=== PATIENT | female | born 1950 | race Caucasian/White ===

== ENCOUNTER 2017-05-03 17:54 | Inpatient (IN) | payer OTHER ==
[~2017-05-03] VITALS: Ht 152.4 cm; Wt 74.8 kg
--- NOTE | 2017-05-03 18:20 | NUR ---
Dr Landeros medically cleared pt.
--- NOTE | 2017-05-03 18:25 | NUR ---
Akira Cottrell notified.
[2017-05-03] MEDS ORDERED: OLAN10TA3 PO (18:39)
[2017-05-03] MEDS ORDERED: CLON0.5T4 PO (18:39)
[2017-05-03] MEDS ORDERED: RISP1TAB7 PO (18:39)
[2017-05-03] MEDS ORDERED: OXCA300T PO (18:39)
[2017-05-03] MEDS ORDERED: DIVA250T4 PO (18:39)
[2017-05-03] MEDS ORDERED: OLAN5TAB3 PO (18:39)
--- NOTE | 2017-05-03 21:38 | NUR ---
Pt. admitted to GPS, under care of Dr. Carlin Belongs List completed
[2017-05-03] MEDS ORDERED: MAG HYDROX/AL HYDROX/SIMETH 30 ML LIQUID UDC PO PRN (21:45)
[2017-05-03] MEDS ORDERED: MAGNESIUM HYDROXIDE 30 ML LIQUID UDC PO PRN (21:45)
[2017-05-03] MEDS: TEMAZEPAM 7.5 MG CAPSULE PO PRN (22:24)
[2017-05-03] MEDS ORDERED: TEMAZEPAM 7.5 MG CAPSULE ONE (22:34)
[2017-05-03 23:29] VITALS: BP 145/97
--- NOTE | 2017-05-04 00:05 | NUR ---
GPS: Admitted to unit earlier a 67 yr.old female under the care of / in stable condition. Pt.is on a 72 hour hold for GD. Pt. has had paranoid delusions of people robbing her home and called police dept. to report but no such evidenced found by P.D. Pt. has long hx of bipolar disorder and unknown if pt.is compliant with her meds. Body check/personal belongings completed. Safety emphasized. No increased agitation noted. Bed alarm on for safety. Pt.alert to self only. Poor insight to present situation. Will continue to monitor.
[2017-05-04 07:30] VITALS: BP 146/109
[2017-05-04] MEDS ORDERED: DIVALPROEX 250 MG TABLET.DR PO SCH (09:00)
[2017-05-04 15:00] VITALS: BP 137/64
--- NOTE | 2017-05-04 15:31 | NUR ---
Initial DC Plan: Patient currently resides home alone [[address] [place] [address]; [phone]] and has an [facility] caregiver. SW will follow up with MD, patient, and patient's friend Mike Chapin [[phone]] to discuss most appropriate discharge plans. SW will form a safe and proper discharge.
[2017-05-04 20:11] VITALS: BP 146/80
[2017-05-04] MEDS: risperiDONE 1 MG TABLET PO SCH (22:41)
[2017-05-04] MEDS: TRAZODONE 50 MG TABLET PO SCH (22:41)
[2017-05-04] MEDS ORDERED: TRAZODONE 50 MG TABLET ONE (22:52)
[2017-05-04] MEDS ORDERED: risperiDONE 1 MG TABLET ONE (22:52)
[2017-05-05] MEDS: TEMAZEPAM 7.5 MG CAPSULE PO PRN (01:29)
[2017-05-05] MEDS: DIVALPROEX 250 MG TABLET.DR PO SCH ×3 (08:43→16:43)
[2017-05-05] MEDS: risperiDONE 1 MG TABLET PO SCH ×2 (08:43→20:10)
[2017-05-05] MEDS: AMLODIPINE 5 MG TABLET PO SCH (11:48)
[2017-05-05] MEDS: LORAZEPAM 1 MG TABLET PO PRN (14:33)
[2017-05-05 15:12] VITALS: BP 151/83
[2017-05-05] MEDS: TRAZODONE 50 MG TABLET PO SCH (20:10)
[2017-05-06] MEDS: TEMAZEPAM 7.5 MG CAPSULE PO PRN (00:48)
[2017-05-06] MEDS: LORAZEPAM 1 MG TABLET PO PRN (03:12)
[2017-05-06 07:30] VITALS: BP 146/74
[2017-05-06 07:47] LABS: BASOPHILS % (AUTO) 0.3 % (0.0-2.0); EOSINOPHILS % (AUTO) 0.2 % (0.0-7.0); HEMATOCRIT 41.4 % (31.2-41.9); HEMOGLOBIN 13.5 g/dL (10.9-14.3); LYMPHOCYTES # (AUTO) 0.5 K/uL (20.0-40.0); LYMPHOCYTES % (AUTO) 3.2 % (20.5-51.5); MEAN CORPUSCULAR HGB CONC 33 g/dL (32.3-35.6); MEAN CORPUSCULAR VOLUME 89.1 fL (75.5-95.3); MONOCYTES % (AUTO) 6.4 % (0.0-11.0); NEUTROPHILS # (AUTO) 13.7 K/uL (1.8-8.9); NEUTROPHILS % (AUTO) 89.9 % (38.5-71.5); PLATELET COUNT (AUTO) 131 K/uL (179-408); RED BLOOD CELL COUNT(AUTO) 4.64 MIL/uL (3.63-4.92); WHITE BLOOD COUNT (AUTO) 15.3 K/uL (3.8-11.8)
[2017-05-06 08:09] LABS: BILIRUBIN,TOTAL 0.3 mg/dL (0.2-1.0); CREATININE 1.6 mg/dL (0.6-1.3); PHOSPHOROUS 3.6 mg/dL (2.5-4.9); POTASSIUM 4.4 mmol/L (3.5-5.1)
[2017-05-06 08:14] LABS: THYROID STIMULATING HORMONE 2.094 mIU/mL (0.358-3.740)
[2017-05-06] MEDS: risperiDONE 1 MG TABLET PO SCH ×2 (08:19→20:00)
[2017-05-06] MEDS: DIVALPROEX 250 MG TABLET.DR PO SCH ×3 (08:19→16:46)
[2017-05-06] MEDS: AMLODIPINE 5 MG TABLET PO SCH (08:19)
[2017-05-06 16:00] VITALS: BP 97/49
[2017-05-06 20:00] VITALS: BP 114/60
[2017-05-06] MEDS: TRAZODONE 50 MG TABLET PO SCH (20:00)
--- NOTE | 2017-05-07 06:58 | NUR ---
GPS: REMAIN CALM AND COOPERATIVE. SLEPT 8 HRS THROUGH THE NIGHT. ASSISTED WITH ADL'S. CONTINUR=E PLAN OF CARE. NO AGGRESSIVE BEHAVIOR NOTED AT THIS TIME.
[2017-05-07 07:30] VITALS: BP 131/75
[2017-05-07] MEDS: DIVALPROEX 250 MG TABLET.DR PO SCH ×3 (08:44→16:47)
[2017-05-07] MEDS: risperiDONE 1 MG TABLET PO SCH ×2 (08:45→20:10)
[2017-05-07] MEDS: AMLODIPINE 5 MG TABLET PO SCH (08:45)
--- NOTE | 2017-05-07 09:00 | NUR ---
Alert, oriented x 3, with fair appetite. Calm and cooperative with care
[2017-05-07 10:01] LABS: BASOPHILS % (AUTO) 0.3 % (0.0-2.0); EOSINOPHILS % (AUTO) 0.3 % (0.0-7.0); HEMATOCRIT 39.4 % (31.2-41.9); HEMOGLOBIN 13.2 g/dL (10.9-14.3); LYMPHOCYTES # (AUTO) 0.8 K/uL (20.0-40.0); LYMPHOCYTES % (AUTO) 5.3 % (20.5-51.5); MEAN CORPUSCULAR HEMOGLOBIN 29.8 uug (24.7-32.8); MEAN CORPUSCULAR HGB CONC 34 g/dL (32.3-35.6); MEAN CORPUSCULAR VOLUME 88.7 fL (75.5-95.3); MONOCYTES # (AUTO) 1.4 K/uL (2.0-10.0); MONOCYTES % (AUTO) 9.3 % (0.0-11.0); NEUTROPHILS # (AUTO) 13.1 K/uL (1.8-8.9); NEUTROPHILS % (AUTO) 84.8 % (38.5-71.5); PLATELET COUNT (AUTO) 120 K/uL (179-408); RED BLOOD CELL COUNT(AUTO) 4.44 MIL/uL (3.63-4.92); WHITE BLOOD COUNT (AUTO) 15.4 K/uL (3.8-11.8)
[2017-05-07 10:19] LABS: BILIRUBIN,TOTAL 0.2 mg/dL (0.2-1.0); CREATININE 2.1 mg/dL (0.6-1.3); MAGNESIUM 1.8 mg/dL (1.8-2.4); PHOSPHOROUS 2.8 mg/dL (2.5-4.9); POTASSIUM 4.1 mmol/L (3.5-5.1); TOTAL PROTEIN, SERUM 7.7 g/dL (6.4-8.2)
--- NOTE | 2017-05-07 13:00 | NUR ---
Incontinence care done. Repositioned in bed comfortably. Complained of headache. Tylenol po given
[2017-05-07] MEDS: ACETAMINOPHEN 325 MG TABLET PO PRN ×2 (13:04→18:17)
--- NOTE | 2017-05-07 16:30 | NUR ---
Temp 101 F. Cooling measures given. Specimen for UA CS sent to lab.
[2017-05-07 16:44] VITALS: BP 101/55
[2017-05-07 18:40] LABS: *BILIRUBIN,URIN NEGATIVE (NEGATIVE); *BLOOD, URINE NEGATIVE (NEGATIVE); *CLARITY,URINE CLEAR (CLEAR); *COLOR,URINE YELLOW (YELLOW); *KETONES,URINE TRACE (NEGATIVE); *PROTEIN,URINE 1+ (NEGATIVE); *UROBILINOGEN,URINE 0.2 E.U./dl (NORMAL); LEUKOCYTE ESTERASE ,URINE NEGATIVE (NEGATIVE); NITRITE, URINE NEGATIVE (NEGATIVE); PH,URINE 6.5 (5.0-8.0); UGLUCOSE NEGATIVE (NEGATIVE)
--- NOTE | 2017-05-07 18:58 | NUR ---
Called Dr. Askew, informed of fever and lab report and UA report, with orders to transfer to [facility] for Fever and [facility]
[2017-05-07 19:00] LABS: BACTERIA,URINE NONE SEEN /HPF (NONE SEEN); RBC,URINE 0-3 /HPF (0-3); SQUAMOUS EPITHELIAL CELL,UR FEW /HPF (NONE SEEN); WBC,URINE 0-3 /HPF (0-3)
--- NOTE | 2017-05-07 19:31 | NUR ---
DR PAINTING WAS NOTIFY OF NEW ORDERS, PER DR. OSMAN, PATIENT TO BE TRANSFERRED TO MED SURG 2ND FLOOR, DUE TO INCREASING WBC, BUN AND CREATININE, AND FEVER. PT WAS NOTIFY OF TRANSFER.
[2017-05-07 20:00] VITALS: BP 111/58
[2017-05-07] MEDS: TRAZODONE 50 MG TABLET PO SCH (20:10)
--- NOTE | 2017-05-07 22:45 | NUR ---
PT TRANSFERRED TO MED SURG FLOOR VIA W/C WITH RN. no distress noted.
== END 2017-05-07 22:01 | disposition short-term general hospital (02) | DRG 885 ==
LOC: ER 17:55 → GPS 21:35
PROVIDERS: ADMIT Psychiatry & Neurology Psychiatry; ATTEND Internal Medicine
DX: F31.64 Bipolar disorder, current episode mixed, severe, with psychotic features (principal); N17.0 Acute kidney failure with tubular necrosis; E87.0 Hyperosmolality and hypernatremia; E66.9 Obesity, unspecified; F41.9 Anxiety disorder, unspecified; Z79.899 Other long term (current) drug therapy; Z91.5 Personal history of self-harm; Z68.32 Body mass index [BMI] 32.0-32.9, adult; E86.0 Dehydration; R74.0 Nonspecific elevation of levels of transaminase and lactic acid dehydrogenase [LDH]; I10 Essential (primary) hypertension; R50.9 Fever, unspecified
CPT/HCPCS: 36415; 71010; 83735; 84100; 84443; 85025; 87086; A4663; J3490

== ENCOUNTER 2017-05-08 00:16 | Inpatient (IN) | payer OTHER ==
--- NOTE | 2017-05-07 22:45 | NUR ---
PATIENT TRANSFERRED INTO MED-SURG UNIT FROM [facility] IN STABLE CONDITION, NO S/S OF DISTRESS. ELEVATED TEMPERATURE. PATIENT IS CONFUSED. WAS ABLE TO TOLERATE BEING TRANSFERRED FROM WHEELCHAIR TO BED. GAIT SLIGHTLY WEAK, SLIGHTLY UNSTEADY. AWAITING MD ORDERS. PATIENT ON 14-DAY HOLD. 1:1 SITTER AT BEDSIDE FOR SAFETY. BED IN LOCKED/LOW POSITION, SIDE RAILS UP X2, BED ALARM ON. COMFORT AND SAFETY WILL BE PROVIDED.
[2017-05-07 23:00] VITALS: BP 125/72
[~2017-05-08] VITALS: Ht 152.4 cm; Wt 68.5 kg
[~2017-05-08 00:16] MED LIST: CLON0.5T4 PO; DIVA250T4 PO; OLAN10TA3 PO; OLAN5TAB3 PO; OXCA300T PO; RISP1TAB7 PO
[2017-05-08] MEDS ORDERED: ONDANSETRON 4 MG/2 ML VIAL IV PRN (00:30)
[2017-05-08] MEDS ORDERED: HYDROCODONE/APAP 5-325MG TABLET PO PRN (00:30)
[2017-05-08] MEDS ORDERED: CEFTRIAXONE 1 G in IV DEXTROSE 5% 50 ML IV SCH (00:30)
[2017-05-08] MEDS ORDERED: CEFTRIAXONE 1 G VIAL ONE (02:15)
[2017-05-08] MEDS: ACETAMINOPHEN 325 MG TABLET PO PRN ×2 (02:58→16:15)
[2017-05-08] MEDS ORDERED: ACETAMINOPHEN 325 MG TABLET ONE (03:08)
[2017-05-08] MEDS: IV 1/2NS 1000 ML 1,000 ML IV PRN ×2 (04:54→18:29)
[2017-05-08 06:39] LABS: BASOPHILS % (AUTO) 0.3 % (0.0-2.0); EOSINOPHILS % (AUTO) 0.4 % (0.0-7.0); HEMATOCRIT 37.5 % (31.2-41.9); HEMOGLOBIN 12.3 g/dL (10.9-14.3); LYMPHOCYTES # (AUTO) 0.9 K/uL (20.0-40.0); LYMPHOCYTES % (AUTO) 7.9 % (20.5-51.5); MEAN CORPUSCULAR HEMOGLOBIN 29.4 uug (24.7-32.8); MEAN CORPUSCULAR HGB CONC 33 g/dL (32.3-35.6); MEAN CORPUSCULAR VOLUME 89.5 fL (75.5-95.3); MONOCYTES # (AUTO) 1.6 K/uL (2.0-10.0); MONOCYTES % (AUTO) 13.6 % (0.0-11.0); NEUTROPHILS # (AUTO) 8.9 K/uL (1.8-8.9); NEUTROPHILS % (AUTO) 77.8 % (38.5-71.5); PLATELET COUNT (AUTO) 105 K/uL (179-408); RED BLOOD CELL COUNT(AUTO) 4.19 MIL/uL (3.63-4.92); WHITE BLOOD COUNT (AUTO) 11.5 K/uL (3.8-11.8)
--- NOTE | 2017-05-08 06:39 | NUR ---
TEMPERATURE IMPROVING. TRENDING IN GOOD DIRECTION. TYLENOL PROVIDED FOR PATIENT, ANTIBIOTICS ADMINISTERED, COOLING MEASURES PROVIDED.
[2017-05-08 07:19] LABS: BILIRUBIN,TOTAL 0.2 mg/dL (0.2-1.0); CREATININE 2.5 mg/dL (0.6-1.3); MAGNESIUM 2.1 mg/dL (1.8-2.4); PHOSPHOROUS 3.4 mg/dL (2.5-4.9); TOTAL PROTEIN, SERUM 7.2 g/dL (6.4-8.2)
[2017-05-08 08:05] LABS: BAND % (MANUAL) 8 % (0-10); LYMPHOCYTES % (MANUAL) 8 % (20-40); MONOCYTES % (MANUAL) 15 % (2-10); NEUTROPHILS % (MANUAL) 69 % (42-75)
[2017-05-08] MEDS: OXCARBAZEPINE 300 MG TABLET PO SCH ×2 (08:09→20:35)
[2017-05-08] MEDS: DIVALPROEX 250 MG TABLET.DR PO SCH ×2 (08:10→16:12)
[2017-05-08] MEDS: PANTOPRAZOLE SODIUM 40 MG TABLET.DR PO SCH (08:10)
[2017-05-08] MEDS ORDERED: OLANZAPINE 5 MG TABLET PO SCH ×2 (09:00→21:00)
[2017-05-08 09:26] VITALS: BP 100/53
--- NOTE | 2017-05-08 09:56 | NUR ---
PATIENT RESTING COMFORTABLY IN BED AT THE MOMENT, VITAL SIGNS STABLE. NO S/S OF DISTRESS. STABLE CONDITION. 1:1 SITTER AT BEDSIDE FOR SAFETY. FLUIDS RUNNING. TEMPERATURE CURRENTLY AT 98.8. NO SIGNS OF PARANOIA, PSYCHOSIS AT THIS TIME. PATIENT ALERT/ORIENTED TO SELF, PLACE, REASON FOR HOSPITALIZATION. PATIENT VERY COOPERATIVE.
[2017-05-08] MEDS: CLONAZEPAM 0.5 MG TABLET PO SCH ×2 (11:40→20:41)
[2017-05-08 16:29] VITALS: BP 134/65
--- NOTE | 2017-05-08 17:50 | NUR ---
PT IS AOX2, CONFUSED PARANOID BELIEVES THAT THERE WERE PEOPLE TAKING HER BELONGINGS AT HOME. SHE HAS FLIGHT OF IDEAS. PT AT 1617 HAD A TEMPERATURE OF 100.5, TYLENOL GIVEN, CONTINUE TO MONITOR PT TEMPERATURE. PT IV SITE IS INTACT WITH NO SIGNS OF REDNESS OR IRRITATION. PT IS RESTING WITH NO SIGNS OF RESPIRATORY DISTRESS, BREATHING EQUALLY, 1:1 SITTER AT BEDSIDE FOR SAFETY.
[2017-05-08] MEDS ORDERED: risperiDONE 1 MG TABLET PO SCH (18:00)
--- NOTE | 2017-05-08 19:30 | NUR ---
PT IN ROOM ALERT ORIENTED TO SELF AND . NO ACTIVE FEVER OR TEMPERATURE NOTED AT THIS TIME. TEMP NOTED 98.9. ABLE TO FOLLOW SIMPLE VERBAL COMMANDS. NO S/S OF ACUTE DISTRESS AT THIS TIME. CONTINUE TO MONITOR. 3 SIDE RAILS RAISED.
[2017-05-08] MEDS: DOCUSATE SODIUM 100 MG CAPSULE PO SCH (20:45)
[2017-05-08] MEDS ORDERED: DOCUSATE SODIUM 250 MG CAPSULE PO SCH (21:00)
--- NOTE | 2017-05-09 01:00 | NUR ---
PT SEEN BY PSYCHIATRIST LAST NIGHT. NO ACUTE DISTRESS NOTED. CONTINUE TO MONITOR. 3 SIDE RAILS RAISE.D
[2017-05-09] MEDS ORDERED: CEFTRIAXONE 1 G in IV DEXTROSE 5% 50 ML IV SCH (04:00)
--- NOTE | 2017-05-09 05:00 | NUR ---
PT IN ROOM IN NO ACUTE DISTRESS. NO INCREASED CONFUSION OR HALLUCINATIONS NOTED. CONTINUE TO MONITOR. CALL LIGHT PLACED WITHIN REACH.
[2017-05-09] MEDS: PANTOPRAZOLE SODIUM 40 MG TABLET.DR PO SCH (06:06)
[2017-05-09 07:47] LABS: BASOPHILS % (AUTO) 0.5 % (0.0-2.0); EOSINOPHILS % (AUTO) 0.4 % (0.0-7.0); HEMATOCRIT 35.7 % (31.2-41.9); HEMOGLOBIN 11.7 g/dL (10.9-14.3); LYMPHOCYTES # (AUTO) 0.8 K/uL (20.0-40.0); MEAN CORPUSCULAR HEMOGLOBIN 29.3 uug (24.7-32.8); MEAN CORPUSCULAR HGB CONC 33 g/dL (32.3-35.6); MEAN CORPUSCULAR VOLUME 89.5 fL (75.5-95.3); MONOCYTES # (AUTO) 1.2 K/uL (2.0-10.0); MONOCYTES % (AUTO) 13.1 % (0.0-11.0); PLATELET COUNT (AUTO) 98 K/uL (179-408); RED BLOOD CELL COUNT(AUTO) 3.99 MIL/uL (3.63-4.92); WHITE BLOOD COUNT (AUTO) 9.1 K/uL (3.8-11.8)
[2017-05-09 07:56] LABS: BILIRUBIN,TOTAL 0.1 mg/dL (0.2-1.0); MAGNESIUM 2.1 mg/dL (1.8-2.4); PHOSPHOROUS 3.8 mg/dL (2.5-4.9); POTASSIUM 4.2 mmol/L (3.5-5.1); TOTAL PROTEIN, SERUM 6.7 g/dL (6.4-8.2)
[2017-05-09 08:00] VITALS: BP 127/71
[2017-05-09] MEDS: risperiDONE 1 MG TABLET PO SCH ×2 (08:45→20:58)
[2017-05-09] MEDS: DIVALPROEX 250 MG TABLET.DR PO SCH ×3 (08:45→16:15)
[2017-05-09] MEDS: ACETAMINOPHEN 325 MG TABLET PO PRN (08:45)
[2017-05-09] MEDS: CLONAZEPAM 0.5 MG TABLET PO SCH ×2 (08:45→20:58)
--- NOTE | 2017-05-09 10:10 | NUR ---
pt now on droplet precautions
[2017-05-09] MEDS ORDERED: OSELTAMIVIR PHOSPHATE 75 MG CAPSULE PO SCH (10:15)
[2017-05-09 10:17] LABS: BAND % (MANUAL) 2 % (0-10); BASOPHILS % (MANUAL) 1 % (0-2); LYMPHOCYTES % (MANUAL) 11 % (20-40); MONOCYTES % (MANUAL) 17 % (2-10); NEUTROPHILS % (MANUAL) 69 % (42-75)
[2017-05-09 12:00] VITALS: BP 93/49
[2017-05-09 13:23] LABS: *URINE TOTAL PROTEIN RANDOM 36.4 mg/dL (<150/24HR)
[2017-05-09 13:34] LABS: *BILIRUBIN,URIN NEGATIVE (NEGATIVE); *BLOOD, URINE NEGATIVE (NEGATIVE); *CLARITY,URINE CLEAR (CLEAR); *COLOR,URINE YELLOW (YELLOW); *KETONES,URINE NEGATIVE (NEGATIVE); *PROTEIN,URINE TRACE (NEGATIVE); *UROBILINOGEN,URINE 0.2 E.U./dl (NORMAL); LEUKOCYTE ESTERASE ,URINE NEGATIVE (NEGATIVE); NITRITE, URINE NEGATIVE (NEGATIVE); UGLUCOSE NEGATIVE (NEGATIVE)
[2017-05-09 13:36] LABS: RBC,URINE 0-3 /HPF (0-3); SQUAMOUS EPITHELIAL CELL,UR MODERATE /HPF (NONE SEEN); WBC,URINE 0-3 /HPF (0-3)
[2017-05-09] MEDS: OSELTAMIVIR PHOSPHATE 75 MG CAPSULE PO SCH (13:54)
[2017-05-09 14:02] LABS: BACTERIA,URINE MODERATE /HPF (NONE SEEN)
[2017-05-09] MEDS ORDERED: ALBUTEROL SULFATE 2.5 MG/ 0.5 ML NEBU NEB PRN (15:30)
[2017-05-09] MEDS ORDERED: IPRATROPIUM BROMIDE 0.5 MG/2.5 ML NEBU NEB PRN (15:30)
[2017-05-09 16:00] VITALS: BP 117/58
[2017-05-09] MEDS: IPRATROPIUM BROMIDE 0.5 MG/2.5 ML NEBU NEB SCH (19:30)
[2017-05-09] MEDS: ALBUTEROL SULFATE 2.5 MG/ 0.5 ML NEBU NEB SCH (19:30)
--- NOTE | 2017-05-09 19:57 | NUR ---
Received pt on bed alert and awake. No acute distress noted. No complaints of pain or discomfort. No SOB noted. Droplet, safety and fall precaution observed and maintained. Call light placed within reach. Sitter at bedside. Kept clean, dry and comfortable. All needs attended.
[2017-05-09 20:00] VITALS: BP 121/68
[2017-05-09] MEDS: DOCUSATE SODIUM 100 MG CAPSULE PO SCH (20:58)
[2017-05-09] MEDS: TRAZODONE 50 MG TABLET PO SCH (20:58)
[2017-05-10] MEDS: IPRATROPIUM BROMIDE 0.5 MG/2.5 ML NEBU NEB SCH ×4 (01:30→19:44)
[2017-05-10] MEDS: ALBUTEROL SULFATE 2.5 MG/ 0.5 ML NEBU NEB SCH ×4 (01:30→19:44)
[2017-05-10] MEDS: IV 1/2NS 1000 ML 1,000 ML IV PRN (05:24)
--- NOTE | 2017-05-10 05:46 | NUR ---
Pt slept well throughout the shift. No acute distress noted. No complaints of pain or discomfort. Breathing even and unlabored with normal respirations. Sitter at bedside. Safety , fall and droplet precautions observed and maintained. All needs attended.
--- NOTE | 2017-05-10 05:50 | NUR ---
Initial txs to be given on day shift. Not notified about resp neb txs until 529.
[2017-05-10] MEDS: PANTOPRAZOLE SODIUM 40 MG TABLET.DR PO SCH (06:39)
--- NOTE | 2017-05-10 07:00 | NUR ---
RECEIVED REPORT FROM FERNANDA SHIFT NURSE, PATIENT IN BED WITH NEBULIZER TRX ON. NO EVIDENCE OF DISTRESS NOTED, BED IN LOW POSITION, SIDE RAILS UP X2. SITTER AT BEDSIDE.
[2017-05-10 07:56] LABS: BASOPHILS % (AUTO) 0.5 % (0.0-2.0); EOSINOPHILS # (AUTO) 0.1 K/uL (0.0-0.7); HEMATOCRIT 37.7 % (31.2-41.9); HEMOGLOBIN 12.4 g/dL (10.9-14.3); LYMPHOCYTES # (AUTO) 1.3 K/uL (20.0-40.0); LYMPHOCYTES % (AUTO) 15.9 % (20.5-51.5); MEAN CORPUSCULAR HEMOGLOBIN 29.4 uug (24.7-32.8); MEAN CORPUSCULAR HGB CONC 33 g/dL (32.3-35.6); MEAN CORPUSCULAR VOLUME 89.6 fL (75.5-95.3); MONOCYTES # (AUTO) 1.3 K/uL (2.0-10.0); MONOCYTES % (AUTO) 16.4 % (0.0-11.0); NEUTROPHILS # (AUTO) 5.2 K/uL (1.8-8.9); NEUTROPHILS % (AUTO) 66.2 % (38.5-71.5); PLATELET COUNT (AUTO) 119 K/uL (179-408); RED BLOOD CELL COUNT(AUTO) 4.21 MIL/uL (3.63-4.92); WHITE BLOOD COUNT (AUTO) 7.9 K/uL (3.8-11.8)
[2017-05-10 07:56] LABS: BILIRUBIN,TOTAL 0.2 mg/dL (0.2-1.0); CREATININE 2.1 mg/dL (0.6-1.3); MAGNESIUM 2.3 mg/dL (1.8-2.4); PHOSPHOROUS 3.3 mg/dL (2.5-4.9); POTASSIUM 4.6 mmol/L (3.5-5.1); TOTAL PROTEIN, SERUM 7.2 g/dL (6.4-8.2)
[2017-05-10] MEDS: risperiDONE 1 MG TABLET PO SCH ×2 (09:01→21:19)
[2017-05-10] MEDS: DIVALPROEX 250 MG TABLET.DR PO SCH ×3 (09:01→16:55)
[2017-05-10] MEDS: CLONAZEPAM 0.5 MG TABLET PO SCH ×2 (09:01→21:19)
[2017-05-10] MEDS: OSELTAMIVIR PHOSPHATE 75 MG CAPSULE PO SCH (09:07)
[2017-05-10] MEDS: ACETAMINOPHEN 325 MG TABLET PO PRN (10:49)
[2017-05-10 11:47] VITALS: BP 111/73
[2017-05-10 12:00] VITALS: BP 122/56
[2017-05-10 12:05] LABS: BAND % (MANUAL) 7 % (0-10); BASOPHILS % (MANUAL) 1 % (0-2); EOSINOPHILS % (MANUAL) 1 % (0-8); LYMPHOCYTES % (MANUAL) 15 % (20-40); MONOCYTES % (MANUAL) 16 % (2-10); NEUTROPHILS % (MANUAL) 60 % (42-75)
[2017-05-10 13:44] VITALS: BP 123/81
[2017-05-10 16:00] VITALS: BP 98/54
--- NOTE | 2017-05-10 19:07 | NUR ---
PATIENT HAS BEEN COOPERATIVE WITH CARE THROUGHOUT THE DAY. PATIENT DESATURATING TO 88%, ADDED 1 LITER OF 02. PATIENT IN NO APPARENT DISTRESS, BED IN LOW POSITION, SIDE RAILS UP X2.
[2017-05-10] MEDS: TRAZODONE 50 MG TABLET PO SCH (21:19)
[2017-05-10] MEDS: DOCUSATE SODIUM 100 MG CAPSULE PO SCH (21:19)
[2017-05-11] MEDS: IPRATROPIUM BROMIDE 0.5 MG/2.5 ML NEBU NEB SCH ×6 (01:30→22:51)
[2017-05-11] MEDS: ALBUTEROL SULFATE 2.5 MG/ 0.5 ML NEBU NEB SCH ×6 (01:30→22:51)
[2017-05-11 04:50] VITALS: BP 104/50
--- NOTE | 2017-05-11 06:00 | NUR ---
Pt slept well, approximately 5.5 hrs, in no distress, no SOB. Pt is on 14 day hold, expires 05/20/17. Pt is urinating well, diaper soaked. Pt kept clean/dry, repositioned for comfort. IVF infusing, no infiltration noted. IV antibiotics administered as ordered, no adverse reaction noted. Safety measures in place, 1:1 sitter provided. Bed alarm on, will continue to monitor. Addendum: 05/11/17 at 0642 by MARYAM COLIN RN Add: Pt remains afebrile.
[2017-05-11] MEDS: PANTOPRAZOLE SODIUM 40 MG TABLET.DR PO SCH (06:07)
[2017-05-11] MEDS: IV 1/2NS 1000 ML 1,000 ML IV PRN (06:13)
--- NOTE | 2017-05-11 07:25 | NUR ---
received report from welder 2nd shift nurse, patient in bed awake, some productive coughing noted. bed in low position, side rails up x2, all needs met. sitter at bedside.
[2017-05-11 08:10] LABS: BILIRUBIN,TOTAL 0.2 mg/dL (0.2-1.0); CREATININE 1.8 mg/dL (0.6-1.3); MAGNESIUM 2.3 mg/dL (1.8-2.4); PHOSPHOROUS 3.9 mg/dL (2.5-4.9); POTASSIUM 4.7 mmol/L (3.5-5.1); TOTAL PROTEIN, SERUM 7.2 g/dL (6.4-8.2)
[2017-05-11] MEDS: risperiDONE 1 MG TABLET PO SCH ×2 (08:25→20:26)
[2017-05-11] MEDS: CLONAZEPAM 0.5 MG TABLET PO SCH ×2 (08:25→20:26)
[2017-05-11] MEDS: DIVALPROEX 250 MG TABLET.DR PO SCH ×2 (08:25→13:09)
[2017-05-11] MEDS: OSELTAMIVIR PHOSPHATE 75 MG CAPSULE PO SCH (08:27)
[2017-05-11 08:33] LABS: BASOPHILS % (AUTO) 0.4 % (0.0-2.0); EOSINOPHILS # (AUTO) 0.1 K/uL (0.0-0.7); EOSINOPHILS % (AUTO) 1.7 % (0.0-7.0); LYMPHOCYTES # (AUTO) 1.9 K/uL (20.0-40.0); LYMPHOCYTES % (AUTO) 31.2 % (20.5-51.5); MEAN CORPUSCULAR HEMOGLOBIN 29.2 uug (24.7-32.8); MEAN CORPUSCULAR HGB CONC 33 g/dL (32.3-35.6); MEAN CORPUSCULAR VOLUME 89.8 fL (75.5-95.3); MONOCYTES % (AUTO) 15.8 % (0.0-11.0); NEUTROPHILS # (AUTO) 3.2 K/uL (1.8-8.9); NEUTROPHILS % (AUTO) 50.9 % (38.5-71.5); PLATELET COUNT (AUTO) 120 K/uL (179-408); RED BLOOD CELL COUNT(AUTO) 4.12 MIL/uL (3.63-4.92); WHITE BLOOD COUNT (AUTO) 6.2 K/uL (3.8-11.8)
[2017-05-11 12:00] VITALS: BP 111/55
[2017-05-11 12:09] LABS: EOSINOPHILS % (MANUAL) 3 % (0-8); LYMPHOCYTES % (MANUAL) 28 % (20-40); METAMYELOCYTES % 2 % (0-1); MONOCYTES % (MANUAL) 18 % (2-10); MYELOCYTES % 1 % (0-0); NEUTROPHILS % (MANUAL) 48 % (42-75)
[2017-05-11 13:07] LABS: A/G RATIO 0.8 (0.7-1.7); ALBUMIN 2.9 g/dL (2.9-4.4); ALPHA-1-GLOBULIN 0.5 g/dL (0.0-0.4); ALPHA-2-GLOBULIN 1.1 g/dL (0.4-1.0); GAMMA GLOBULIN 0.9 g/dL (0.4-1.8); GLOBULIN, TOTAL 3.5 g/dL (2.2-3.9); M-SPIKE 0.2 g/dL (Not Observed)
[2017-05-11] MEDS: IV D5W 1000ML 1,000 ML IV PRN (13:10)
[2017-05-11] MEDS ORDERED: ALBUTEROL SULFATE 2.5 MG/ 0.5 ML NEBU NEB PRN (14:00)
[2017-05-11] MEDS ORDERED: IPRATROPIUM BROMIDE 0.5 MG/2.5 ML NEBU NEB PRN (14:00)
[2017-05-11 16:00] VITALS: BP 112/58
--- NOTE | 2017-05-11 16:25 | NUR ---
FIRST DOSE WAS GIVEN AT EARLIER TIME WILL RESUME Q4 SCHEDULE ON FOLLOWING TX.
--- NOTE | 2017-05-11 20:00 | NUR ---
NSG: Received pt on bed alert and awake. No acute distress noted. No complaints of pain or discomfort. No SOB noted. Droplet, ON 1:1 SITTER @ bed side all the time for safety ,fall precaution observed and maintained. Call light placed within reach. Kept clean, dry and comfortable. All needs attended.
[2017-05-11] MEDS: TRAZODONE 50 MG TABLET PO SCH (20:26)
[2017-05-11] MEDS: DIVALPROEX 500 MG TABLET.DR PO SCH (20:26)
[2017-05-11] MEDS: DOCUSATE SODIUM 100 MG CAPSULE PO SCH (20:26)
[2017-05-12] MEDS: IV D5W 1000ML 1,000 ML IV PRN (02:08)
[2017-05-12] MEDS: IPRATROPIUM BROMIDE 0.5 MG/2.5 ML NEBU NEB SCH ×6 (02:43→23:18)
[2017-05-12] MEDS: ALBUTEROL SULFATE 2.5 MG/ 0.5 ML NEBU NEB SCH ×6 (02:43→23:18)
[2017-05-12 04:00] VITALS: BP 133/70
[2017-05-12] MEDS: PANTOPRAZOLE SODIUM 40 MG TABLET.DR PO SCH (06:23)
--- NOTE | 2017-05-12 06:59 | NUR ---
NSG:Pt slept well throughout the shift. No acute distress noted. No complaints of pain or discomfort. Breathing even and unlabored with normal respirations. Sitter at bedside. Safety , fall and droplet precautions observed and maintained. All needs attended. continue plan of care.
--- NOTE | 2017-05-12 07:01 | NUR ---
nsg: patient voiding freely in diaper. no bladder distention noted.
[2017-05-12 08:04] LABS: BASOPHILS % (AUTO) 0.3 % (0.0-2.0); EOSINOPHILS # (AUTO) 0.1 K/uL (0.0-0.7); EOSINOPHILS % (AUTO) 1.9 % (0.0-7.0); HEMOGLOBIN 10.9 g/dL (10.9-14.3); LYMPHOCYTES # (AUTO) 1.2 K/uL (20.0-40.0); MEAN CORPUSCULAR HEMOGLOBIN 28.8 uug (24.7-32.8); MEAN CORPUSCULAR HGB CONC 32 g/dL (32.3-35.6); MEAN CORPUSCULAR VOLUME 89.5 fL (75.5-95.3); MONOCYTES # (AUTO) 0.8 K/uL (2.0-10.0); MONOCYTES % (AUTO) 15.8 % (0.0-11.0); NEUTROPHILS # (AUTO) 2.7 K/uL (1.8-8.9); PLATELET COUNT (AUTO) 127 K/uL (179-408); RED BLOOD CELL COUNT(AUTO) 3.79 MIL/uL (3.63-4.92); WHITE BLOOD COUNT (AUTO) 4.8 K/uL (3.8-11.8)
[2017-05-12 08:34] LABS: BILIRUBIN,TOTAL 0.1 mg/dL (0.2-1.0); CREATININE 1.6 mg/dL (0.6-1.3); MAGNESIUM 2.2 mg/dL (1.8-2.4); PHOSPHOROUS 2.6 mg/dL (2.5-4.9); POTASSIUM 5.1 mmol/L (3.5-5.1); TOTAL PROTEIN, SERUM 6.2 g/dL (6.4-8.2)
[2017-05-12] MEDS: DIVALPROEX 250 MG TABLET.DR PO SCH ×2 (10:02→14:42)
[2017-05-12] MEDS: CLONAZEPAM 0.5 MG TABLET PO SCH ×2 (10:02→21:16)
[2017-05-12] MEDS: risperiDONE 1 MG TABLET PO SCH ×2 (10:02→21:18)
[2017-05-12] MEDS: OSELTAMIVIR PHOSPHATE 75 MG CAPSULE PO SCH (10:03)
[2017-05-12] MEDS ORDERED: IV D5W 1000ML 1,000 ML IV PRN (10:45)
[2017-05-12 10:53] VITALS: BP 118/72
--- NOTE | 2017-05-12 12:00 | NUR ---
Endorsed patient to CESAR Alaniz. Patient is alert, resting in bed, no SOB. IVF infusing, no infiltration noted. 1:1 sitter provided for safety.
--- NOTE | 2017-05-12 12:00 | NUR ---
received report from CESAR Abebe. patient stable upon initial assessment. no s/s acute distress. 1:1 sitter at bedside. will monitor.
[2017-05-12] MEDS ORDERED: PIPERACILLIN/TAZOBACTAM/D5W 50 ML IV SCH (13:00)
[2017-05-12 14:14] LABS: EOSINOPHILS % (MANUAL) 2 % (0-8); LYMPHOCYTES % (MANUAL) 24 % (20-40); METAMYELOCYTES % 4 % (0-1); MYELOCYTES % 2 % (0-0); NEUTROPHILS % (MANUAL) 52 % (42-75)
[2017-05-12 14:15] LABS: MONOCYTES % (MANUAL) 16 % (2-10)
[2017-05-12 15:24] VITALS: BP 102/70
[2017-05-12] MEDS: methylPREDNISolone SOD SUCC 40 MG/ML VIAL IV SCH ×2 (15:58→22:23)
[2017-05-12] MEDS: PIPERACILLIN/TAZOBACTAM/D5W 2.25 G in PREMIXED 1 EACH IV SCH ×2 (15:58→23:26)
--- NOTE | 2017-05-12 17:00 | NUR ---
patient stable, resting comfortably. no s/s acute distress, no c/o pain. patient tolerated all cares well, took all meds cooperatively. per charge nurse, 1:1 sitter not available, EMPERATRIZ to closely monitor patient. patient is acting appropriately at this time. will continue to monitor.
--- NOTE | 2017-05-12 19:20 | NUR ---
RECEIVED PATIENT IN BED, AWAKE, VERBALLY RESPONSIVE, NO SOB NO CHEST PAIN, NOTED, CONT ON DROPLET PRECAUTION, CONT 1;1 SITTER FOR SAFETY, KEPT CLEAN AND DRY, CONT TO MONITOR.
[2017-05-12 19:30] VITALS: BP 152/72
[2017-05-12] MEDS: DOCUSATE SODIUM 100 MG CAPSULE PO SCH (21:15)
[2017-05-12] MEDS: TRAZODONE 50 MG TABLET PO SCH (21:16)
[2017-05-12] MEDS: DIVALPROEX 500 MG TABLET.DR PO SCH (21:16)
[2017-05-13] MEDS ORDERED: IPRATROPIUM BROMIDE 0.5 MG/2.5 ML NEBU ONE (02:18)
[2017-05-13] MEDS: ALBUTEROL SULFATE 2.5 MG/ 0.5 ML NEBU NEB SCH ×6 (03:26→22:44)
[2017-05-13] MEDS: IPRATROPIUM BROMIDE 0.5 MG/2.5 ML NEBU NEB SCH ×6 (03:26→22:44)
[2017-05-13] MEDS: methylPREDNISolone SOD SUCC 40 MG/ML VIAL IV SCH ×3 (05:32→21:08)
[2017-05-13] MEDS: PIPERACILLIN/TAZOBACTAM/D5W 2.25 G in PREMIXED 1 EACH IV SCH ×3 (05:32→18:19)
[2017-05-13] MEDS: PANTOPRAZOLE SODIUM 40 MG TABLET.DR PO SCH (05:33)
[2017-05-13 05:40] VITALS: BP 142/71
--- NOTE | 2017-05-13 06:12 | NUR ---
PATIENT SLEPT MOST OF THE NIGHT NO SOB NO CHEST PAIN NOTED, NO COMPLAIN OF PAIN, WITH ON AND OFF COUGH NOTED, CONT ON HHN TX ORDERED, CONT 1;1 SITTER FOR SAFETY. CONT TO MONITOR.
[2017-05-13 07:45] LABS: BILIRUBIN,TOTAL 0.2 mg/dL (0.2-1.0); CREATININE 1.7 mg/dL (0.6-1.3); MAGNESIUM 2.2 mg/dL (1.8-2.4); PHOSPHOROUS 3.2 mg/dL (2.5-4.9); POTASSIUM 5.2 mmol/L (3.5-5.1); TOTAL PROTEIN, SERUM 7.3 g/dL (6.4-8.2)
[2017-05-13 07:48] VITALS: BP 131/70
[2017-05-13] MEDS: risperiDONE 1 MG TABLET PO SCH ×2 (09:29→21:08)
[2017-05-13] MEDS: CLONAZEPAM 0.5 MG TABLET PO SCH ×2 (09:30→21:08)
[2017-05-13] MEDS: DIVALPROEX 250 MG TABLET.DR PO SCH ×2 (09:30→13:19)
[2017-05-13] MEDS: OSELTAMIVIR PHOSPHATE 75 MG CAPSULE PO SCH (09:31)
[2017-05-13 10:16] LABS: HEMOGLOBIN 12.2 g/dL (10.9-14.3); MONOCYTES # (AUTO) 0.2 K/uL (2.0-10.0)
[2017-05-13 10:29] LABS: BASOPHILS % (AUTO) 0.2 % (0.0-2.0); HEMATOCRIT 36.8 % (31.2-41.9); LYMPHOCYTES # (AUTO) 0.9 K/uL (20.0-40.0); LYMPHOCYTES % (AUTO) 11.5 % (20.5-51.5); MEAN CORPUSCULAR HEMOGLOBIN 29.5 uug (24.7-32.8); MEAN CORPUSCULAR HGB CONC 33 g/dL (32.3-35.6); MEAN CORPUSCULAR VOLUME 89.1 fL (75.5-95.3); MONOCYTES % (AUTO) 1.9 % (0.0-11.0); NEUTROPHILS % (AUTO) 86.4 % (38.5-71.5); PLATELET COUNT (AUTO) 156 K/uL (179-408); RED BLOOD CELL COUNT(AUTO) 4.12 MIL/uL (3.63-4.92); WHITE BLOOD COUNT (AUTO) 8.1 K/uL (3.8-11.8)
[2017-05-13 12:00] VITALS: BP 129/63
[2017-05-13 13:38] LABS: BAND % (MANUAL) 1 % (0-10); EOSINOPHILS % (MANUAL) 1 % (0-8); LYMPHOCYTES % (MANUAL) 12 % (20-40); METAMYELOCYTES % 2 % (0-1); MONOCYTES % (MANUAL) 3 % (2-10); NEUTROPHILS % (MANUAL) 81 % (42-75)
[2017-05-13 15:57] VITALS: BP 134/68
[2017-05-13 18:57] LABS: *BILIRUBIN,URIN NEGATIVE (NEGATIVE); *BLOOD, URINE NEGATIVE (NEGATIVE); *CLARITY,URINE CLEAR (CLEAR); *COLOR,URINE YELLOW (YELLOW); *KETONES,URINE NEGATIVE (NEGATIVE); *PROTEIN,URINE NEGATIVE (NEGATIVE); *UROBILINOGEN,URINE 0.2 E.U./dl (NORMAL); LEUKOCYTE ESTERASE ,URINE NEGATIVE (NEGATIVE); NITRITE, URINE NEGATIVE (NEGATIVE); PH,URINE 6.5 (5.0-8.0); UGLUCOSE NEGATIVE (NEGATIVE)
--- NOTE | 2017-05-13 19:12 | NUR ---
Patient in bed, Awake, alert with no Resp. distress noted. continue on droplet isolation. specimen collected for UA, C&S Call light in with reach.
[2017-05-13 19:19] LABS: SQUAMOUS EPITHELIAL CELL,UR MODERATE /HPF (NONE SEEN); WBC,URINE 0-3 /HPF (0-3)
--- NOTE | 2017-05-13 19:30 | NUR ---
Received patient laying comfortably in bed. No acute distress noted. Patient is asleep at the moment. No sitter at bedside. Safety initiated. Call light within reach. Will continue to monitor.
[2017-05-13] MEDS: DIVALPROEX 500 MG TABLET.DR PO SCH (21:08)
[2017-05-13] MEDS: TRAZODONE 50 MG TABLET PO SCH (21:08)
[2017-05-13] MEDS: DOCUSATE SODIUM 100 MG CAPSULE PO SCH (21:08)
[2017-05-14] MEDS: PIPERACILLIN/TAZOBACTAM/D5W 2.25 G in PREMIXED 1 EACH IV SCH ×4 (00:46→17:02)
[2017-05-14] MEDS: IPRATROPIUM BROMIDE 0.5 MG/2.5 ML NEBU NEB SCH ×6 (02:56→23:03)
[2017-05-14] MEDS: ALBUTEROL SULFATE 2.5 MG/ 0.5 ML NEBU NEB SCH ×6 (02:56→23:04)
[2017-05-14 03:56] VITALS: BP 123/66
[2017-05-14] MEDS: methylPREDNISolone SOD SUCC 40 MG/ML VIAL IV SCH (05:19)
--- NOTE | 2017-05-14 05:45 | NUR ---
No changes t/o shift. No behavioral issues t/o shift. Vital signs stable. All meds given as ordered. Safety and comfort measures maintained t/o shift. All needs met.
[2017-05-14] MEDS: PANTOPRAZOLE SODIUM 40 MG TABLET.DR PO SCH (06:05)
[2017-05-14 07:12] LABS: BASOPHILS % (AUTO) 0.1 % (0.0-2.0); HEMATOCRIT 37.1 % (31.2-41.9); LYMPHOCYTES # (AUTO) 0.7 K/uL (20.0-40.0); LYMPHOCYTES % (AUTO) 5.8 % (20.5-51.5); MEAN CORPUSCULAR HEMOGLOBIN 29.1 uug (24.7-32.8); MEAN CORPUSCULAR HGB CONC 33 g/dL (32.3-35.6); MEAN CORPUSCULAR VOLUME 89.5 fL (75.5-95.3); MONOCYTES # (AUTO) 0.7 K/uL (2.0-10.0); MONOCYTES % (AUTO) 5.5 % (0.0-11.0); NEUTROPHILS # (AUTO) 11.2 K/uL (1.8-8.9); NEUTROPHILS % (AUTO) 88.6 % (38.5-71.5); PLATELET COUNT (AUTO) 182 K/uL (179-408); RED BLOOD CELL COUNT(AUTO) 4.15 MIL/uL (3.63-4.92); WHITE BLOOD COUNT (AUTO) 12.7 K/uL (3.8-11.8)
--- NOTE | 2017-05-14 07:47 | NUR ---
Received patient laying comfortably in bed. No acute distress noted. Patient is asleep at the moment. Safety initiated. Call light within reach. Will continue to monitor.
[2017-05-14] MEDS: risperiDONE 1 MG TABLET PO SCH ×2 (08:06→20:57)
[2017-05-14] MEDS: CLONAZEPAM 0.5 MG TABLET PO SCH ×2 (08:06→20:58)
[2017-05-14] MEDS: DIVALPROEX 250 MG TABLET.DR PO SCH ×2 (08:06→12:28)
[2017-05-14] MEDS: OSELTAMIVIR PHOSPHATE 75 MG CAPSULE PO SCH (08:07)
[2017-05-14 08:26] LABS: BAND % (MANUAL) 1 % (0-10); LYMPHOCYTES % (MANUAL) 8 % (20-40); METAMYELOCYTES % 1 % (0-1); MONOCYTES % (MANUAL) 5 % (2-10); NEUTROPHILS % (MANUAL) 85 % (42-75)
[2017-05-14 08:37] LABS: CREATININE 1.8 mg/dL (0.6-1.3); MAGNESIUM 2.2 mg/dL (1.8-2.4)
[2017-05-14 11:41] VITALS: BP 132/67
[2017-05-14 16:24] VITALS: BP 144/71
--- NOTE | 2017-05-14 19:50 | NUR ---
RECEIVED SHIFT REPORT FROM DAY SHIFT NURSE. 1:1 SITTER AT BEDSIDE FOR SAFETY. PATIENT A/OX3, STABLE CONDITION, NO S/S OF DISTRESS. INFORMED THAT PATIENT DOES NOT NEED IV LINE, ONLY PO MEDICATIONS. BED IN LOCKED/LOW POSITION, SIDE RAILS UP X2, BED ALARM ON. INFORMED ALSO THAT PATIENT WILL BE GOING HOME TOMORROW. SAFETY/COMFORT WILL BE PROVIDED.
[2017-05-14] MEDS: DIVALPROEX 500 MG TABLET.DR PO SCH (20:58)
[2017-05-14] MEDS: DOCUSATE SODIUM 100 MG CAPSULE PO SCH (20:58)
[2017-05-14] MEDS: TRAZODONE 50 MG TABLET PO SCH (20:58)
[2017-05-15] MEDS: PIPERACILLIN/TAZOBACTAM/D5W 2.25 G in PREMIXED 1 EACH IV SCH ×2 (01:47→06:03)
[2017-05-15] MEDS: methylPREDNISolone SOD SUCC 40 MG/ML VIAL IV SCH ×2 (01:50→09:10)
[2017-05-15] MEDS: ALBUTEROL SULFATE 2.5 MG/ 0.5 ML NEBU NEB SCH ×3 (03:41→11:20)
[2017-05-15] MEDS: IPRATROPIUM BROMIDE 0.5 MG/2.5 ML NEBU NEB SCH ×3 (03:41→11:21)
[2017-05-15] MEDS: PANTOPRAZOLE SODIUM 40 MG TABLET.DR PO SCH (06:02)
[2017-05-15 07:45] LABS: BASOPHILS % (AUTO) 0.2 % (0.0-2.0); EOSINOPHILS % (AUTO) 0.1 % (0.0-7.0); HEMATOCRIT 37.2 % (31.2-41.9); HEMOGLOBIN 12.1 g/dL (10.9-14.3); LYMPHOCYTES # (AUTO) 0.6 K/uL (20.0-40.0); LYMPHOCYTES % (AUTO) 5.4 % (20.5-51.5); MEAN CORPUSCULAR HEMOGLOBIN 29.1 uug (24.7-32.8); MEAN CORPUSCULAR HGB CONC 33 g/dL (32.3-35.6); MEAN CORPUSCULAR VOLUME 89.1 fL (75.5-95.3); MONOCYTES # (AUTO) 0.4 K/uL (2.0-10.0); NEUTROPHILS # (AUTO) 9.9 K/uL (1.8-8.9); NEUTROPHILS % (AUTO) 90.3 % (38.5-71.5); PLATELET COUNT (AUTO) 244 K/uL (179-408); RED BLOOD CELL COUNT(AUTO) 4.17 MIL/uL (3.63-4.92)
[2017-05-15 08:00] VITALS: BP 103/61
--- NOTE | 2017-05-15 08:00 | NUR ---
Awake, alert, oriented x 3, able to verbalize needs appropriately. Denies suicidal ideation. 1:1 sitter at bedside
[2017-05-15 08:01] LABS: BILIRUBIN,TOTAL 0.2 mg/dL (0.2-1.0); CREATININE 1.7 mg/dL (0.6-1.3); MAGNESIUM 2.1 mg/dL (1.8-2.4); PHOSPHOROUS 3.6 mg/dL (2.5-4.9); POTASSIUM 4.7 mmol/L (3.5-5.1)
[2017-05-15] MEDS: DIVALPROEX 250 MG TABLET.DR PO SCH ×2 (09:10→12:11)
[2017-05-15] MEDS: risperiDONE 1 MG TABLET PO SCH (09:10)
[2017-05-15] MEDS: CLONAZEPAM 0.5 MG TABLET PO SCH (09:10)
[2017-05-15 10:14] LABS: LYMPHOCYTES % (MANUAL) 4 % (20-40); MONOCYTES % (MANUAL) 4 % (2-10); NEUTROPHILS % (MANUAL) 92 % (42-75)
--- NOTE | 2017-05-15 13:20 | NUR ---
With discharge order to home. Cleared by Psychiatrist, Hold discontinued. Saline lock removed. Home health to be arranged with [employer], waiting on [facility]. Prescription and DC instructions given to patient, verbalized understanding. Waiting for Mike Chapin friend for last picker.
--- NOTE | 2017-05-15 15:22 | NUR ---
Discharged per wheelchair via transportation arranged by Mike Chapin in fair condition, not in distress, afebrile
== END 2017-05-15 15:30 | disposition home health service (06) | DRG 193 ==
LOC: MED 00:16
PROVIDERS: ADMIT Internal Medicine; ATTEND Internal Medicine
DX: J10.1 Influenza due to other identified influenza virus with other respiratory manifestations (principal); N17.0 Acute kidney failure with tubular necrosis; E43 Unspecified severe protein-calorie malnutrition; G92 Toxic encephalopathy; D68.59 Other primary thrombophilia; D69.6 Thrombocytopenia, unspecified; E87.0 Hyperosmolality and hypernatremia; M62.82 Rhabdomyolysis; N28.1 Cyst of kidney, acquired; F31.64 Bipolar disorder, current episode mixed, severe, with psychotic features; E86.0 Dehydration; E66.9 Obesity, unspecified; G40.909 Epilepsy, unspecified, not intractable, without status epilepticus; I12.9 Hypertensive chronic kidney disease with stage 1 through stage 4 chronic kidney disease, or unspecified chronic kidney disease; N18.9 Chronic kidney disease, unspecified; Z68.29 Body mass index [BMI] 29.0-29.9, adult; F29 Unspecified psychosis not due to a substance or known physiological condition
CPT/HCPCS: 36415; 71010; 76770; 80164; 83605; 83735; 83970; 84100; 84155; 84156; 84165; 84300; 85025; 85610; 85730; 87070; 87086; 87400; 94640; 94664; A4663; J0696; J2543; J2920; J3490; J3590; J7042; J7060; J7070